=== PATIENT | female | born 1960 | race Caucasian/White ===

== ENCOUNTER 2018-11-14 13:42 | Emergency (ER) | payer OTHER ==
--- OUTSIDE RECORDS SUMMARY | 2018-11-14 13:56 | XMS REPORT ---
:1960 Author Organization eClinicalWorks Care Team Providers Name Role Phone Silva Zavala Provider Role Unavailable Allergies No Known Allergies Problems Problem Type Condition Code Onset Dates Condition Status Problem Hyperlipidemia E78.5 Active Problem Circulation problem I99.9 Active Problem Cigarette nicotine dependence F17.210 Active without complication Problem Anxiety F41.9 Active Problem Hypertension I10 Active Problem Migraine headache G43.909 Active Problem IBS (irritable bowel syndrome) K58.9 Active Problem History of colon polyps Z86.010 Active Problem Allergic rhinitis, seasonal J30.2 Active Problem 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 Problem Reflux K21.9 Active Problem Sinus problem J34.9 Active Medications No Known Medications Results No Known Results Summary Purpose eClinicalWorks Submission
--- OUTSIDE RECORDS SUMMARY | 2018-11-14 13:56 | XMS REPORT ---
:1960 Author Organization eClinicalWorks Care Team Providers Name Role Phone Silva Zavala Provider Role Unavailable Allergies, Adverse Reactions, Alerts Substance Reaction Event Type Morphine Sulfate Bad H/A's Drug Allergy Demerol Feels weird Drug Allergy Problems Problem Type Condition Code Onset Dates Condition Status Problem Hyperlipidemia E78.5 Active Problem Circulation problem I99.9 Active Problem Cigarette nicotine dependence F17.210 Active without complication Problem Migraine headache G43.909 Active Problem IBS (irritable bowel syndrome) K58.9 Active Problem History of colon polyps Z86.010 Active Problem Allergic rhinitis, seasonal J30.2 Active Problem 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 Problem Reflux K21.9 Active Problem Sinus problem J34.9 Active Assessment Breast cancer screening by Z12.31 Active mammogram Assessment Reflux K21.9 Active Assessment Hypertension I10 Active Assessment History of colon polyps Z86.010 Active Problem Anxiety F41.9 Active Assessment 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 Problem Hypertension I10 Active Medications Medication Code Code Instructions Start End Status Dosage System Date Date Gas-X [facility] 53065939400 80 MG Orally Active 1 tablet once a day after meals and at bedtime as needed Anoro Ellipta [facility] 41372139425 62.5mcg/25 mcg AugustApr 29, Active as directed inhalation 2017 puff daily Losartan [facility] 05678801725 50 MG Orally BID July Active 2 tabs in Potassium 2017 am and 1 tab in pm Unisom [facility] 22561974998 25 MG Orally Active 4-5 tablets Once a day at bedtime as needed Excedrin [facility] 34121269795 250-250-65 MG Active 2 tablets Migraine Orally once a as needed day Flonase ND 31375181510 50 MCG/DOSE 28 July Active as directed sprays per 2017 nostril twice a day Omeprazole ND 32726568296 40 MG Orally October 31, Active 1 capsule Once a day 2017 Ventolin HFA [facility] 90318799715 108 (90 Base) August Active 2 puffs as MCG/ACT 2017 needed Inhalation every 6 hrs Zantac [facility] 56966329849 150 MG Orally Active 3 tablets Once a day Results No Known Results Summary Purpose eClinicalWorks Submission
--- OUTSIDE RECORDS SUMMARY | 2018-11-14 13:56 | XMS REPORT ---
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 Problem Hypertension I10 Active Medications Medication Code Code Instructions Start End Status Dosage System Date Date Amlodipine ND 10026897568 5 MG Orally Once November 28, Active 1 tablet Besylate a day 2017 Zantac ND 43645249968 150 MG Orally Active 3 tablets Once a day Ventolin HFA ND 75699539965 108 (90 Base) August Active 2 puffs as MCG/ACT 2017 needed Inhalation every 6 hrs Unisom [facility] 82903317692 25 MG Orally Active 4-5 tablets Once a day at bedtime as needed Omeprazole ND 16025121676 40 MG Orally October 31, Active 1 capsule Once a day 2017 Losartan ND 35044221951 50 MG Orally BID July Active 2 tabs in Potassium 2017 am and 1 tab in pm Gas-X ND 92394771504 80 MG Orally Active 1 tablet once a day after meals and at bedtime as needed Excedrin ND 07246444427 250-250-65 MG Active 2 tablets Migraine Orally once a as needed day Symbicort ND 36576790365 160-4.5 MCG/ACT November 28, Mar 28, Active 2 puffs Inhalation Twice 2017 2017 a day Flonase [facility] 55233544985 50 MCG/DOSE 28 July Active as directed sprays per 2017 nostril twice a day Results No Known Results Summary Purpose eClinicalWorks Submission
--- OUTSIDE RECORDS SUMMARY | 2018-11-14 13:56 | XMS REPORT ---
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 Problem Cigarette nicotine dependence F17.210 Active without complication Problem Hypertension I10 Active Problem Anxiety F41.9 Active Problem Hyperlipidemia E78.5 Active Problem Reflux K21.9 Active Problem Sinus problem J34.9 Active Problem Migraine headache G43.909 Active Problem IBS (irritable bowel syndrome) K58.9 Active Medications Medication Code Code Instructions Start End Status Dosage System Date Date Ventolin HFA [facility] 34335639335 108 (90 Base) August Active 2 puffs as MCG/ACT 2017 needed Inhalation every 6 hrs Anoro Ellipta [facility] 04872075295 62.5mcg/25 mcg August Active as directed inhalation 2017 03, puff daily 2017 Results No Known Results Summary Purpose eClinicalWorks Submission
--- OUTSIDE RECORDS SUMMARY | 2018-11-14 13:56 | XMS REPORT ---
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 Assessment Reflux K21.9 Active Assessment Hypertension I10 Active Assessment Cigarette nicotine dependence F17.210 Active without complication Problem Cigarette nicotine dependence F17.210 Active without complication Medications Medication Code Code Instructions Start End Status Dosage System Date Date Zantac [facility] 76678841405 150 MG Orally Active 3 tablets Once a day Unisom [facility] 90283456929 25 MG Orally Active 4-5 tablets Once a day at bedtime as needed Symbicort ND 09122039795 160-4.5 MCG/ACT July Active 2 puffs Inhalation Twice 2017 19, a day 2017 Gas-X [facility] 88121860314 80 MG Orally Active 1 tablet once a day after meals and at bedtime as needed Excedrin [facility] 65758917706 250-250-65 MG Active 2 tablets Migraine Orally once a as needed day Losartan ND 50950741094 100 MG Orally July Active 1 tablet Potassium Once a day 2017 Flonase ND 44170648578 50 MCG/DOSE 28 July Active as directed sprays per 2017 nostril twice a day Results No Known Results Summary Purpose eClinicalWorks Submission
--- OUTSIDE RECORDS SUMMARY | 2018-11-14 13:56 | XMS REPORT ---
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 Assessment Hypertension I10 Active Problem Cigarette nicotine dependence F17.210 Active without complication Medications Medication Code Code Instructions Start End Date Status Dosage System Date Unisom [facility] 46907282458 25 MG Orally Active 4-5 tablets Once a day at bedtime as needed Zantac [facility] 15342113939 150 MG Orally Active 3 tablets Once a day Anoro Ellipta [facility] 84838467660 62.5mcg/25 mcg AugustNovember 28, Active as directed inhalation 1 2017 puff daily Gas-X [facility] 59799236180 80 MG Orally Active 1 tablet once a day after meals and at bedtime as needed Losartan ND 22182817505 50 MG Orally July Active 1 tablet Potassium BID 2017 Flonase [facility] 03572080330 50 MCG/DOSE 2 July Active as directed sprays per 2017 nostril twice a day Ventolin HFA [facility] 99869899076 108 (90 Base) August Active 2 puffs as MCG/ACT 2017 needed Inhalation every 6 hrs Symbicort ND 51011224648 160-4.5 MCG/ACT July Inactive 2 puffs Inhalation 2017 Twice a day Excedrin [facility] 69603711471 250-250-65 MG Active 2 tablets Migraine Orally once a as needed day Results No Known Results Summary Purpose eClinicalWorks Submission
--- OUTSIDE RECORDS SUMMARY | 2018-11-14 13:56 | XMS REPORT ---
[...] Active Problem Sinus problem J34.9 Active Medications Medication Code System Code Instructions Start Date End Date Status Dosage Valsartan [facility] 74374948863 80 MG Orally December 04, Active 1 tablet Twice a day 2017 Results No Known Results Summary Purpose eClinicalWorks Submission
--- OUTSIDE RECORDS SUMMARY | 2018-11-14 13:56 | XMS REPORT ---
[...] Sinus problem J34.9 Active Medications Medication Code Code Instructions Start End Status Dosage System Date Date Flonase [facility] 34866663646 50 MCG/DOSE 28 July Active as directed sprays per 2017 nostril twice a day Irbesartan ND 96311402139 150 MG Orally December 12, Active 1 tablet Once a day 2017 Gas-X ND 01476020727 80 MG Orally Active 1 tablet once a day after meals and at bedtime as needed Unisom [facility] 55996001945 25 MG Orally Active 4-5 tablets Once a day at bedtime as needed Amlodipine ND 71472061048 5 MG Orally Once November 28, Active 1 tablet Besylate a day 2017 Valsartan [facility] 91420408146 80 MG Orally December 04, Active 1 tablet Twice a day 2017 Symbicort [facility] 23004609278 160-4.5 MCG/ACT November 28, Mar 28, Active 2 puffs Inhalation Twice 2017 2017 a day Ventolin HFA [facility] 12957391471 108 (90 Base) August Active 2 puffs as MCG/ACT 2017 needed Inhalation every 6 hrs Excedrin [facility] 79458461116 250-250-65 MG Active 2 tablets Migraine Orally once a as needed day Zantac [facility] 73179492229 150 MG Orally Active 3 tablets Once a day Omeprazole ND 97007263841 40 MG Orally October 31, Active 1 capsule Once a day 2018 Results No Known Results Summary Purpose eClinicalWorks Submission
--- OUTSIDE RECORDS SUMMARY | 2018-11-14 13:57 | XMS REPORT ---
:1960 Author Organization eClinicalWorks Care Team Providers Name Role Phone Silva Zavala Provider Role Unavailable Allergies No Known Allergies Problems Problem Type Condition Code Onset Dates Condition Status Problem IBS (irritable bowel syndrome) K58.9 Active Problem Cigarette nicotine dependence F17.210 Active without complication Problem Migraine headache G43.909 Active Problem Hot flashes due to menopause N95.1 Active Problem Restless leg syndrome G25.81 Active Problem Stress incontinence of urine N39.3 Active Problem Hypertension I10 Active Problem Anxiety F41.9 Active Problem History of colon polyps Z86.010 Active Problem Hyperlipidemia E78.5 Active Problem 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 Problem Allergic rhinitis, seasonal J30.2 Active Problem Sinus problem J34.9 Active Problem Circulation problem I99.9 Active Problem Reflux K21.9 Active Medications Medication Code Code Instructions Start End Date Status Dosage System Date Olmesartan [facility] 10103875030 20 MG Orally Feb , Active 1 tablet Medoxomil Once a day 2019 Results No Known Results Summary Purpose eClinicalWorks Submission
--- OUTSIDE RECORDS SUMMARY | 2018-11-14 13:57 | XMS REPORT ---
:1960 Author Organization eClinicalWorks Care Team Providers Name Role Phone Silva Zavala Provider Role Unavailable Allergies, Adverse Reactions, Alerts Substance Reaction Event Type Morphine Sulfate Bad H/A's Drug Allergy Demerol Feels weird Drug Allergy Problems Problem Type Condition Code Onset Dates Condition Status Problem Reflux K21.9 Active Problem Migraine headache G43.909 Active Problem IBS (irritable bowel syndrome) K58.9 Active Problem Hot flashes due to menopause N95.1 Active Problem History of colon polyps Z86.010 Active Problem Restless leg syndrome G25.81 Active Problem Hypertension I10 Active Problem Anxiety F41.9 Active Problem Cigarette nicotine dependence F17.210 Active without complication Problem Hyperlipidemia E78.5 Active Assessment Hot flashes due to menopause N95.1 Active Problem Circulation problem I99.9 Active Problem 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 Assessment Restless leg syndrome G25.81 Active Problem Allergic rhinitis, seasonal J30.2 Active Problem Sinus problem J34.9 Active Medications Medication Code Code Instructions Start End Status Dosage System Date Date Amlodipine [facility] 98982474273 5 MG Orally Once November 28, Active 1 tablet Besylate a day [address] [facility] 01796641747 160-4.5 MCG/ACT November 28, Mar 28, Active 2 puffs Inhalation Twice 2017 2017 a day Irbesartan [facility] 43889629538 150 MG Orally December 12, Active 1 tablet Once a day [address] [facility] 87704022478 25 MG Orally Active 4-5 tablets Once a day at bedtime as needed Gas-X ND 01360614706 80 MG Orally Active 1 tablet once a day after meals and at bedtime as needed Ventolin HFA [facility] 70918295590 108 (90 Base) August Active 2 puffs as MCG/ACT 2017 needed Inhalation every 6 hrs Omeprazole ND 65896712397 40 MG Orally October 31, Active 1 capsule Once a day [address] [facility] 02356471667 150 MG Orally Active 3 tablets Once a day Excedrin [facility] 50069452371 250-250-65 MG Active 2 tablets Migraine Orally once a as needed day Ropinirole HCl [facility] 84184330158 0.5 MG Orally Jan 09, Active 1 tablet 1 Three times a 2018 to 3 hours day before bedtime Flonase [facility] 31118342617 50 MCG/DOSE 28 July Active as directed sprays per 2017 nostril twice a day Results No Known Results Summary Purpose eClinicalWorks Submission
--- OUTSIDE RECORDS SUMMARY | 2018-11-14 13:57 | XMS REPORT ---
[...] polyps Z86.010 Active Problem Hyperlipidemia E78.5 Active Assessment Common cold J00 Active Assessment Congestion of respiratory tract J98.8 Active Assessment Hypertension I10 Active Problem 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 Problem Allergic rhinitis, seasonal J30.2 Active Problem Sinus problem J34.9 Active Problem Circulation problem I99.9 Active Problem Reflux K21.9 Active Medications Medication Code Code Instructions Start End Date Status Dosage System Date Spiriva [facility] 40434263102 18 MCG Feb 20, Jun 20, Active 1 capsule HandiHaler Inhalation Once 2017 2018 a day Omeprazole ND 44166706661 40 MG Orally October 31, Active 1 capsule Once a day 2017 Anoro Ellipta [facility] 96385149912 62.5-25 MCG/INH Mar 05August Active 1 puff Inhalation Once 2017 a day Amlodipine ND 11003228298 5 MG Orally November 28, Active 1 tablet Besylate Once a day 2017 Unisom ND 40043609064 25 MG Orally Active 4-5 tablets Once a day at bedtime as needed Excedrin ND 79624775325 250-250-65 MG Active 2 tablets Migraine Orally once a as needed day Irbesartan ND 09820011737 150 MG Orally December 12, Active 1 tablet Once a day 2017 Flonase ND 97753047738 50 MCG/DOSE 28 July Active as directed sprays per 2017 nostril twice a day Ventolin HFA [facility] 24584760842 108 (90 Base) August Active 2 puffs as MCG/ACT 2017 needed Inhalation every 6 hrs Ropinirole HCl ND 04507881509 0.5 MG Orally Jan 09, Active 1 tablet 1 Three times a 2018 to 3 hours day before bedtime Bromfed DM [facility] 06055854124 30-2-10 MG/5ML Jun 12, Jun 27, Active 5-10 ml as Orally every 6 2018 2018 needed hrs Gas-X [facility] 71777477534 80 MG Orally Active 1 tablet once a day after meals and at bedtime as needed Zantac [facility] 12764244597 150 MG Orally Active 3 tablets Once a day Results No Known Results Summary Purpose eClinicalWorks Submission
--- OUTSIDE RECORDS SUMMARY | 2018-11-14 13:57 | XMS REPORT ---
:1960 Author Organization eClinicalWorks Care Team Providers Name Role Phone Yecenia Zavalay Provider Role Unavailable Allergies, Adverse Reactions, Alerts [...] without complication Problem Hyperlipidemia E78.5 Active Assessment 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 Problem Circulation problem I99.9 Active Problem 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 Assessment Hypertension I10 Active Problem Allergic rhinitis, seasonal J30.2 Active Problem Sinus problem J34.9 Active Medications Medication Code Code Instructions Start End Status Dosage System Date Date Flonase [facility] 08541603685 50 MCG/DOSE 28 July Active as directed sprays per 2017 nostril twice a day Unisom [facility] 07305992685 25 MG Orally Active 4-5 tablets Once a day at bedtime as needed Zantac [facility] 11764947667 150 MG Orally Active 3 tablets Once a day Irbesartan ND 82065142364 150 MG Orally December 12, Active 1 tablet Once a day 2017 Symbicort ND 06040983645 160-4.5 MCG/ACT November 28, Mar 28, Active 2 puffs Inhalation Twice 2017 2017 a day Spiriva [facility] 61543618080 18 MCG Feb 20, Jun 20, Active 1 capsule HandiHaler Inhalation Once 2017 2018 a day Gas-X ND 97307262528 80 MG Orally Active 1 tablet once a day after meals and at bedtime as needed Ventolin HFA [facility] 17929271472 108 (90 Base) August Active 2 puffs as MCG/ACT 2017 needed Inhalation every 6 hrs Excedrin [facility] 41281906563 250-250-65 MG Active 2 tablets Migraine Orally once a as needed day Omeprazole [facility] 38798681398 40 MG Orally October 31, Active 1 capsule Once a day 2017 Ropinirole HCl [facility] 66116392986 0.5 MG Orally Jan 09, Active 1 tablet 1 Three times a 2018 to 3 hours day before bedtime Amlodipine [facility] 46854397508 5 MG Orally Once November 28, Active 1 tablet Besylate a day 2017 Results No Known Results Summary Purpose eClinicalWorks Submission
--- OUTSIDE RECORDS SUMMARY | 2018-11-14 13:57 | XMS REPORT ---
[...] Active without complication Problem Hyperlipidemia E78.5 Active Problem Circulation problem I99.9 Active Problem 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 Problem Allergic rhinitis, seasonal J30.2 Active Problem Sinus problem J34.9 Active Medications Medication Code System Code Instructions Start End Date Status Dosage Date Omeprazole [facility] 60459899371 40 MG Orally Once October 31, Active 1 capsule a day [address] [facility] 32500564713 150 MG Orally December 12, Active 1 tablet Once a day 2017 Results No Known Results Summary Purpose eClinicalWorks Submission
--- OUTSIDE RECORDS SUMMARY | 2018-11-14 13:57 | XMS REPORT ---
[...] Z86.010 Active Problem Hyperlipidemia E78.5 Active Assessment Stress incontinence of urine N39.3 Active Assessment Encounter for annual routine Z01.419 Active gynecological examination Problem 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 Problem Allergic rhinitis, seasonal J30.2 Active Problem Sinus problem J34.9 Active Problem Circulation problem I99.9 Active Problem Reflux K21.9 Active Medications Medication Code Code Instructions Start End Status Dosage System Date Date Symbicort [facility] 75832545744 160-4.5 MCG/ACT November 28, Mar 28, Active 2 puffs Inhalation Twice 2017 2017 a day Ventolin HFA ND 67363021760 108 (90 Base) August Active 2 puffs as MCG/ACT 2017 needed Inhalation every 6 hrs Zantac ND 89265758934 150 MG Orally Active 3 tablets Once a day Irbesartan ND 11018122530 150 MG Orally December 12, Active 1 tablet Once a day 2017 Flonase ND 79511682699 50 MCG/DOSE 28 July Active as directed sprays per 2017 nostril twice a day Gas-X ND 92397393192 80 MG Orally Active 1 tablet once a day after meals and at bedtime as needed Ropinirole HCl ND 23183614782 0.5 MG Orally Jan 09, Active 1 tablet 1 Three times a 2018 to 3 hours day before bedtime Excedrin ND 77046036283 250-250-65 MG Active 2 tablets Migraine Orally once a as needed day Unisom [facility] 02356907857 25 MG Orally Active 4-5 tablets Once a day at bedtime as needed Omeprazole [facility] 87052298615 40 MG Orally October 31, Active 1 capsule Once a day 2017 Spiriva [facility] 60796108843 18 MCG Feb 20, Jun 20, Active 1 capsule HandiHaler Inhalation Once 2017 2018 a day Amlodipine [facility] 91544125057 5 MG Orally Once November 28, Active 1 tablet Besylate a day 2017 Results Name Result Date Reference Range Unit Abnormality Flag OCCULT (iac) BLOOD (ONE SPECIMEN) ----Occult Blood neg [id number] ----Occult Blood QC neg [id number] Summary Purpose eClinicalWorks Submission
--- OUTSIDE RECORDS SUMMARY | 2018-11-14 13:57 | XMS REPORT ---
[...] Problem Reflux K21.9 Active Medications Medication Code System Code Instructions Start End Date Status Dosage Date Anoro Ellipta [facility] 45741711580 62.5-25 MCG/INH Mar 05, September 01, Active 1 puff Inhalation Once 2017 2018 a day Results No Known Results Summary Purpose eClinicalWorks Submission
--- OUTSIDE RECORDS SUMMARY | 2018-11-14 13:57 | XMS REPORT ---
[...] without complication Problem Hyperlipidemia E78.5 Active Assessment Screening for osteoporosis Z13.820 Active Assessment Medicare annual wellness visit, Z00.00 Active subsequent Assessment Encounter for immunization Z23 Active Problem Circulation problem I99.9 Active Problem 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 Assessment Encounter for screening mammogram Z12.31 Active for breast cancer Problem Allergic rhinitis, seasonal J30.2 Active Problem Sinus problem J34.9 Active Medications Medication Code Code Instructions Start End Status Dosage System Date Date Symbicort [facility] 71138843723 160-4.5 MCG/ACT November 28, Mar 28, Active 2 puffs Inhalation Twice 2017 2017 a day Zantac [facility] 09376647155 150 MG Orally Active 3 tablets Once a day Ropinirole HCl [facility] 50934089016 0.5 MG Orally Jan 09, Active 1 tablet 1 Three times a 2018 to 3 hours day before bedtime Spiriva [facility] 40337541898 18 MCG Feb 20, Jun 20, Active 1 capsule HandiHaler Inhalation Once 2017 2018 a day Gas-X [facility] 31638826527 80 MG Orally Active 1 tablet once a day after meals and at bedtime as needed Omeprazole ND 29228716993 40 MG Orally October 31, Active 1 capsule Once a day 2018 Excedrin [facility] 96735814946 250-250-65 MG Active 2 tablets Migraine Orally once a as needed day Flonase [facility] 13318614637 50 MCG/DOSE 2 July Active as directed sprays per 2017 nostril twice a day Ventolin HFA [facility] 48075520881 108 (90 Base) August Active 2 puffs as MCG/ACT 2017 needed Inhalation every 6 hrs Amlodipine [facility] 73585638916 5 MG Orally Once November 28, Active 1 tablet Besylate a day 2017 Unisom [facility] 52724685365 25 MG Orally Active 4-5 tablets Once a day at bedtime as needed Irbesartan [facility] 39034842172 150 MG Orally December 12, Active 1 tablet Once a day 2017 Results No Known Results Immunizations Vaccine Administration Date Fluvirin Feb 27, 2018 Summary Purpose eClinicalWorks Submission
--- OUTSIDE RECORDS SUMMARY | 2018-11-14 13:57 | XMS REPORT ---
[...] Instructions Start End Date Status Dosage Date Carvedilol [facility] 43490559160 12.5 MG Orally August 10, Active with food bid 2018 Results No Known Results Summary Purpose eClinicalWorks Submission
--- OUTSIDE RECORDS SUMMARY | 2018-11-14 13:58 | XMS REPORT ---
[...] I99.9 Active Problem Reflux K21.9 Active Medications No Known Medications Results No Known Results Summary Purpose eClinicalWorks Submission
[2018-11-14] MEDS ORDERED: ACETAMINOPHEN 325 MG TABLET ONE (15:59)
[2018-11-14] MEDS ORDERED: TETANUS & DIPHTHERIA TOX,ADULT 0.5 ML VIAL ONE (15:59)
--- NOTE | 2018-11-14 17:04 | RAD REPORT ---
EXAM DESCRIPTION: RAD - Humerus Right - 11/14/2018 4:28 pm CLINICAL HISTORY: Dog bite upper right arm COMPARISON: None. FINDINGS: No fracture is identified. There is no dislocation or periosteal reaction noted. No foreig n body or other soft tissue abnormality. IMPRESSION: Negative right humerus examination.
[2018-11-14] MEDS ORDERED: AMOX/K CLAV 875 MG TAB ONE (17:13)
[2018-11-14] MEDS ORDERED: LIDOCAINE 1% 20 ML MDV ONE (17:13)
--- NOTE | 2018-11-14 17:24 | EDPHYS ---
Physician Documentation [facility] Name: Jennifer Clarke Age: 58 yrs Sex: Female : 1960 Arrival Date: 11/14/2018 Time: 13:43 Bed 28 Private MD: ED Physician Pranav Jenkins HPI: 11/14 15:10 This 58 yrs old Female presents to ER via Wheelchair with complaints of Dog jmm Bite. 15:10 by a dog. Onset: The symptoms/episode began/occurred acutely, just prior to arrival. the [facility] Animal information: Animal's vaccinations are up to date. Secondary to the bite the patient reports This is a 58 year old female that presents to the ED after being bitten by a friends dog. Patient was playing with the animal and the dog bit her right upper arm. . Historical: - Allergies: 13:59 Demerol; aj 13:59 Morphine; aj - Immunization history:: Adult Immunizations up to date. - Ebola Screening: : Patient denies travel to an Ebola-affected area in the 21 days before illness onset. ROS: 15:10 Constitutional: Negative for fever, chills, and weight loss, Cardiovascular: Negative jmm for chest pain, palpitations, and edema, Respiratory: Negative for shortness of breath, cough, wheezing, and pleuritic chest pain. 15:10 MS/extremity: Positive for injury or acute deformity, laceration. 15:10 Skin: Positive for laceration(s). 15:10 All other systems are negative. Exam: 15:10 Constitutional: This is a well developed, well nourished patient who is awake, alert, jmm and in no acute distress. Head/Face: atraumatic. Eyes: EOMI, no conjunctival erythema appreciated ENT: Moist Mucus Membranes Neck: Trachea midline, Supple Chest/axilla: Normal chest wall appearance and motion. Cardiovascular: Regular rate and rhythm. No edema appreciated Respiratory: Normal respirations, no respiratory distress appreciated Abdomen/GI: Non distended, soft Back: Normal ROM 15:10 Musculoskeletal/extremity: from appreciated to the right elbow and wrist, full radial pulse, ulnar, median, and radial nerve intact, < 2 sec dist cap refill, compartments are soft, NVI. 15:10 Skin: multiple punctures and lacerations noted to the right humeral region. 15:10 Neuro: Orientation: is normal, Mentation: is normal, Memory: is normal. 15:10 Psych: Behavior/mood is pleasant, cooperative. Vital Signs: 13:59 BP 83 / 50; Pulse 54; Resp 20; Temp 97.2; Pulse Ox 100% on R/A; Weight 45.36 kg; Height aj 5 ft. 4 in. (162.56 cm); 14:11 BP 104 / 67; Pulse 71; Resp 16; Pulse Ox 100% on R/A; aj1 15:15 BP 114 / 66; Pulse 71; Resp 18; Pulse Ox 100% on R/A; aj1 16:15 BP 123 / 85; Pulse 75; Resp 18; Pulse Ox 97% on R/A; aj1 17:13 BP 123 / 85; Pulse 75; Resp 18; Temp 97; Pulse Ox 100% on R/A; mg2 13:59 Body Mass Index 17.16 (45.36 kg, 162.56 cm) aj MDM: 15:10 Patient medically screened. the [facility] 17:18 Data reviewed: vital signs, nurses notes. Counseling: I had a detailed discussion with libia the patient and/or guardian regarding: the historical points, exam findings, and any diagnostic results supporting the discharge/admit diagnosis, the need for outpatient follow up, to return to the emergency department if symptoms worsen or persist or if there are any questions or concerns that arise at home. ED course: Wound was copious irrigated. patient given wound infection return precautions. . 11/14 15:12 Order name: Humerus Right XRAY; Complete Time: 17:29 the [facility] 11/14 16:37 Order name: Misc. 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 Exp: aj1 07/26/2020. Lot #: [id number]. } Route: IM; Site: left deltoid; 17:34 Follow up: Response: No adverse reaction aj1 15:50 Drug: Tylenol 650 mg Route: PO; aj1 17:35 Follow up: Response: No adverse reaction aj1 17:11 Drug: Augmentin 875 mg Route: PO; mg2 17:35 Follow up: Response: No adverse reaction aj1 17:11 Drug: Lidocaine (1 %) 20 ml {Note: given by the provider.} Volume: 20 ml; Route: mg2 Infiltration; 17:35 Follow up: Response: No adverse reaction aj1 Disposition: 11/15 07:23 Co-signature as Attending Physician, Pranav Jenkins MD I agree with the assessment and kdr plan of care. Disposition: 11/14/18 17:23 Discharged to Home. Impression: Dog Bite. - Condition is Stable. - Discharge Instructions: Animal Bite. - Prescriptions for Augmentin 875- 125 mg Oral Tablet - take 1 tablet by ORAL route every 12 hours for 10 days; 20 tablet. - Medication Reconciliation Form, Thank You Letter, Antibiotic Education, Prescription Opioid Use form. - Follow up: Private Physician; When: 2 - 3 days; Reason: Recheck today's complaints, Continuance of care, Re-evaluation by your physician. Signatures: Dispatcher [employer] EDMS Joanne Dallas RN RN aj1 Judith Armendariz RN RN aj Pranav Jenkins MD MD kdr Mickail, Joel, PA PA [facility] Shahid Barclay RN RN mg2 Corrections: (The following items were deleted from the chart) 11/14 17:36 17:23 11/14/2018 17:23 Discharged to Home. Impression: Dog Bite. Condition is Stable. aj1 Forms are Medication Reconciliation Form, Thank You Letter, Antibiotic Education, Prescription Opioid Use. Follow up: Private Physician; When: 2 - 3 days; Reason: Recheck today's complaints, Continuance of care, Re-evaluation by your physician. kathy
--- NOTE | 2018-11-14 17:24 | ER ---
Nurse's Notes [facility] Name: Jennifer Clarke Age: 58 yrs Sex: Female : 1960 Arrival Date: 11/14/2018 Time: 13:43 Bed 28 Private MD: Diagnosis: Dog Bite Presentation: 11/14 13:58 Presenting complaint: Patient states: Was bitten by her friends dog to right bicep aj today 1 hour [employer]ASK[employer]. while playing ball with the dog. Care prior to arrival: None. 13:58 Acuity: MATTI 2 aj 13:58 Method Of Arrival: Wheelchair aj 17:33 Transition of care: patient was not received from another setting of care. Onset of aj1 symptoms was November 14, 2018. Risk Assessment: Do you want to hurt yourself or someone else? Patient reports no desire to harm self or others. Initial Sepsis Screen: Does the patient meet any 2 criteria? No. Patient's initial sepsis screen is negative. Does the patient have a suspected source of infection? No. Patient's initial sepsis screen is negative. Triage Assessment: 13:59 Bite description: bite sustained to right bicep and right antecubital area is by a dog. aj General: Appears in no apparent distress. comfortable, Behavior is calm, cooperative, appropriate for age. Pain: Complains of pain in right bicep and right antecubital area. Neuro: Level of Consciousness is awake, alert, obeys commands, Oriented to person, place, time, situation, Appropriate for age. Respiratory: Airway is patent. Derm: Skin is intact, is healthy with good turgor, Skin is pink, warm \T\ dry. normal. Historical: - Allergies: 13:59 Demerol; aj 13:59 Morphine; aj - Immunization history:: Adult Immunizations up to date. - Ebola Screening: : Patient denies travel to an Ebola-affected area in the 21 days before illness onset. Screenin:11 Abuse screen: Denies threats or abuse. Denies injuries from another. Nutritional aj1 screening: No deficits noted. Tuberculosis screening: No symptoms or risk factors identified. 17:34 Fall Risk None identified. aj1 Assessment: 14:11 General: Appears in no apparent distress. uncomfortable, Behavior is calm, cooperative, aj1 appropriate for age. Pain: Complains of pain in right bicep Pain does not radiate. Pain currently is 10 out of 10 on a pain scale. Quality of pain is described as sharp, Pain began suddenly, Alleviated by repositioning. Neuro: Level of Consciousness is awake, alert, obeys commands, Oriented to person, place, time, situation. Cardiovascular: Patient's skin is warm and dry. Respiratory: Airway is patent Respiratory effort is even, unlabored, Respiratory pattern is regular, symmetrical. GI: No signs and/or symptoms were reported involving the gastrointestinal system. : No signs and/or symptoms were reported regarding the genitourinary system. EENT: No signs and/or symptoms were reported regarding the EENT system. Derm: Wound noted right bicep Wound is multiple puncture wounds, patient reports that she was bitten by a dog. Derm: Skin is pink, warm \T\ dry. Musculoskeletal: No signs and/or symptoms reported regarding the musculoskeletal system. Circulation, motion, and sensation intact. Injury Description: Bite sustained to right bicep caused by a dog, is from animal. 15:15 Reassessment: Patient appears in no apparent distress at this time. No changes from aj1 previously documented assessment. Patient and/or family updated on plan of care and expected duration. Pain level reassessed. Patient is alert, oriented x 3, equal unlabored respirations, skin warm/dry/pink. 16:15 Reassessment: Patient appears in no apparent distress at this time. No changes from aj1 previously documented assessment. Patient and/or family updated on plan of care and expected duration. Pain level reassessed. Patient is alert, oriented x 3, equal unlabored respirations, skin warm/dry/pink. 17:08 Reassessment: ADELFO Shaw at bedside. aj1 17:32 Reassessment: Patient appears in no apparent distress at this time. No changes from aj1 previously documented assessment. Patient and/or family updated on plan of care and expected duration. Pain level reassessed. Patient is alert, oriented x 3, equal unlabored respirations, skin warm/dry/pink. Vital Signs: 13:59 BP 83 / 50; Pulse 54; Resp 20; Temp 97.2; Pulse Ox 100% on R/A; Weight 45.36 kg; Height aj 5 ft. 4 in. (162.56 cm); 14:11 BP 104 / 67; Pulse 71; Resp 16; Pulse Ox 100% on R/A; aj1 15:15 BP 114 / 66; Pulse 71; Resp 18; Pulse Ox 100% on R/A; aj1 16:15 BP 123 / 85; Pulse 75; Resp 18; Pulse Ox 97% on R/A; aj1 17:13 BP 123 / 85; Pulse 75; Resp 18; Temp 97; Pulse Ox 100% on R/A; mg2 13:59 Body Mass Index 17.16 (45.36 kg, 162.56 cm) aj ED Course: 13:43 Patient arrived in ED. as 13:59 Triage completed. aj 13:59 Arm band placed on left wrist. Patient placed in an exam room. aj 14:11 Patient has correct armband on for positive identification. Bed in low position. Call aj1 light in reach. Side rails up X 1. 14:11 No provider procedures requiring assistance completed. aj1 15:03 Khoa Arauz PA is PHCP. [facility] 15:03 Pranav Jenkins MD is Attending Physician. [facility] 15:15 Joanne Dallas, ARPITA is Primary Nurse. aj1 16:29 Humerus Right XRAY In Process Unspecified. EDMS 17:32 Patient did not have IV access during this emergency room visit. 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 Exp: aj1 07/26/2020. Lot #: [id number]. } Route: IM; Site: left deltoid; 17:34 Follow up: Response: No adverse reaction aj1 15:50 Drug: Tylenol 650 mg Route: PO; aj1 17:35 Follow up: Response: No adverse reaction aj1 17:11 Drug: Augmentin 875 mg Route: PO; mg2 17:35 Follow up: Response: No adverse reaction aj1 17:11 Drug: Lidocaine (1 %) 20 ml {Note: given by the provider.} Volume: 20 ml; Route: mg2 Infiltration; 17:35 Follow up: Response: No adverse reaction aj Outcome: 17:23 Discharge ordered by . jmm 17:34 Discharged to home ambulatory. aj1 17:34 Condition: good 17:34 Discharge instructions given to patient, Instructed on discharge instructions, follow up and referral plans. medication usage, Demonstrated understanding of instructions, follow-up care, medications, Prescriptions given X 1. 17:36 Patient left the ED. aj1 Signatures: Dispatcher [employer] EDJoanne King RN RN ajJudith Salmon RN RN aj Khoa Arauz PA PA jmm Martinez, Amelia as Gardose, Michele, RN RN mg2
== END 2018-11-14 17:36 | disposition home or self-care (01) ==
LOC: ER 13:42
DX: S41.151A Open bite of right upper arm, initial encounter (principal); W54.0XXA Bitten by dog, initial encounter; Z88.5 Allergy status to narcotic agent; Z23 Encounter for immunization
CPT/HCPCS: 90471; 90714; 99283